=== PATIENT | male | born 1935 | race Caucasian/White ===

== ENCOUNTER 2017-12-04 16:01 | Inpatient (IN) | payer MEDICARE, MEDICAID ==
--- NOTE | 2017-12-04 17:53 | ER Document Report ---
ED Medical Screen (RME) - General Chief Complaint: Abnormal Lab Results Stated Complaint: ABNORMAL LABS Time Seen by Provider: 12/04/17 17:51 Notes: Patient is sent from his primary care doctor's office due to having new onset of atrial fibrillation with PVCs. Patient denies any previous history of atrial fibrillation. He states however that he was just going to his doctor for a routine visit. He states that the routine visit they did the EKG. He states he has not recently had any new chest pain or shortness of breath. No new weakness or dizziness. He states that he feels "fine". TRAVEL OUTSIDE OF THE [place] IN LAST 30 DAYS: No - Related Data Allergies/Adverse Reactions: aspirin Allergy (Verified 12/04/17 16:04) codeine Allergy (Verified 12/04/17 16:04) Penicillins Allergy (Verified 12/04/17 16:04) sulfa Allergy (Uncoded 12/04/17 16:04) Past Medical History - Social History Chew tobacco use (# tins/day): No Frequency of alcohol use: None Drug Abuse: None Renal/ Medical History: Denies: Hx Peritoneal Dialysis Physical Exam - Vital signs Vitals: Temp Pulse Resp BP Pulse Ox 97.7 F 95 18 126/74 H 99 12/04/17 16:25 12/04/17 16:25 12/04/17 16:25 12/04/17 16:25 12/04/17 16:25 Course - Vital Signs Vital signs: Temp Pulse Resp BP Pulse Ox 97.7 F 95 18 126/74 H 99 12/04/17 16:25 12/04/17 16:25 12/04/17 16:25 12/04/17 16:25 12/04/17 16:25
[2017-12-04 18:32] LABS: ABSOLUTE EOSINOPHILS # (AUTO) 0.1 10^3/uL (0.0-0.6); ABSOLUTE LYMPHOCYTES (AUTO) 1.3 10^3/uL (0.5-4.7); ABSOLUTE MONOCYTES (AUTO) 0.4 10^3/uL (0.1-1.4); ABSOLUTE NEUT (AUTO) 6.8 10^3/uL (1.7-8.2); BASOPHILS % (AUTO) 0.6 % (0-2); EOSINOPHILS % (AUTO) 0.9 % (0-6); HEMATOCRIT 40.7 % (37.9-51.0); HEMOGLOBIN 13.7 g/dL (13.5-17.0); LYMPHOCYTES % (AUTO) 14.9 % (13-45); MEAN CORPUSCULAR HEMOGLOBIN 31.6 pg (27.0-33.4); MEAN CORPUSCULAR HGB CONC 33.6 g/dL (32.0-36.0); MEAN CORPUSCULAR VOLUME 94 fl (80-97); PLATELET COUNT 223 10^3/uL (150-450); RED BLOOD COUNT 4.33 10^6/uL (4.35-5.55); SEGMENTED NEUTROPHILS % (AUTO) 78.6 % (42-78); TOTAL CELLS COUNTED % (AUTO) 100 %; WHITE BLOOD COUNT 8.6 10^3/uL (4.0-10.5)
--- NOTE | 2017-12-04 18:44 | ER Document Report ---
ED General - General Chief Complaint: Abnormal Lab Results Stated Complaint: ABNORMAL LABS Time Seen by Provider: 12/04/17 17:51 Notes: Patient is here because his primary care provider found ventricular arrhythmias including possible atrial fibrillation, and PACs and PVCs on his EKG in the office today. Patient was there for a routine checkup visit arranged by 7th grade social studies teacher. He denies having any symptoms. He denies specifically having any chest pains, shortness of breath or difficulty breathing, or vomiting or diarrhea. He says he went to the physician's office because he wanted to get some medications for his Parkinson's disease. child protective services social worker here with him says that he has intermittent shaking of the hands. 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 Patient lives alone. TRAVEL OUTSIDE OF THE [place] IN LAST 30 DAYS: No - Related Data Allergies/Adverse Reactions: aspirin Allergy (Verified 12/04/17 16:04) codeine Allergy (Verified 12/04/17 16:04) Penicillins Allergy (Verified 12/04/17 16:04) sulfa Allergy (Uncoded 12/04/17 16:04) Past Medical History - Social History Smoking Status: Former Smoker Cigarette use (# per day): No Chew tobacco use (# tins/day): No Frequency of alcohol use: None Drug Abuse: None Family History: Reviewed & Not Pertinent Patient has suicidal ideation: No Patient has homicidal ideation: No - Past Medical History Cardiac Medical History: Reports: Hx Hypertension Denies: Hx Atrial Fibrillation, Hx Coronary Artery Disease, Hx Heart Attack Neurological Medical History: Reports: Other - Parkinson's disease and early dementia GI Medical History: Reports: Hx Gastroesophageal Reflux Disease Review of Systems - Review of Systems Notes: REVIEW OF SYSTEMS: CONSTITUTIONAL : Denies fever. EENT: Denies eye, ear, nose or mouth or throat pain or other symptoms. CARDIOVASCULAR: Denies chest pain. RESPIRATORY: Denies cough, chest congestion, or shortness of breath. GASTROINTESTINAL: Denies abdominal pain or nausea, vomiting, or diarrhea. GENITOURINARY: Denies difficulty or painful urinating, urinary frequency, blood in urine. MUSCULOSKELETAL: Denies back or neck pain. Denies joint pain or swelling. SKIN: Denies rash or skin lesions. NEUROLOGICAL: Complains of shakes from his Parkinson's disease. Denies LOC or altered mental status. Denies headache. Denies sensory loss or motor deficits. Has intermittent fine tremor of his hands. ALL OTHER SYSTEMS REVIEWED AND NEGATIVE. Physical Exam - Vital signs Vitals: Temp Pulse Resp BP Pulse Ox 97.7 F 95 18 126/74 H 99 12/04/17 16:25 12/04/17 16:25 12/04/17 16:25 12/04/17 16:25 12/04/17 16:25 Interpretation: Normal - Notes Notes: PHYSICAL EXAMINATION: GENERAL: Well-appearing, in no acute distress. Anxious. Hard of hearing. HEAD: Atraumatic, normocephalic. EYES: Pupils equal round and reactive to light, extraocular movements intact. ENT: oropharynx clear without exudates. Moist mucous membranes. NECK: Normal range of motion, supple. LUNGS: Breath sounds clear and equal bilaterally. HEART: Irregular rate and rhythm without murmurs. ABDOMEN: Soft, nontender. No guarding or rebound. No masses. BACK: No tenderness throughout entire back. EXTREMITIES: Normal range of motion without pain. Negative Homans bilaterally. NEUROLOGICAL: Normal speech. Hard of hearing. Normal sensory, motor, and reflex exams. Awake, alert, and oriented x3. PSYCH: Normal mood, normal affect. SKIN: Warm, dry, no rashes. Course - Re-evaluation Re-evalutation: 12/04/17 19:30 Workup in the emergency department was essentially normal. No unusual labs. Spoke with Dr. Murcia who will admit the patient for further evaluation of his cardiac arrhythmia. - Vital Signs Vital signs: Temp Pulse Resp BP Pulse Ox 98.2 F 95 22 H 122/70 96 12/04/17 19:00 12/04/17 16:25 12/04/17 21:00 12/04/17 21:00 12/04/17 21:00 - Laboratory Result Diagrams: 12/04/17 18:17 12/04/17 18:17 Laboratory results interpreted by me: 12/04/17 12/04/17 12/04/17 18:17 18:17 18:17 RBC 4.33 L Seg Neutrophils % 78.6 H Glucose 129 H Calcium 10.4 H NT-Pro-B Natriuret Pep 605 H TSH 12/04/17 18:17 RBC Seg Neutrophils % Glucose Calcium NT-Pro-B Natriuret Pep TSH 4.75 H - Diagnostic Test Radiology results interpreted by me: 12/04/17 23:51 Chest x-ray shows no acute abnormality. Normal. - EKG Interpretation by Me EKG shows normal: Sinus rhythm Rate: Normal Rhythm: NSR, PVC's, APC's. No: A.Fib [place]/QRS: RBBB Discharge - Discharge Clinical Impression: PVCs (premature ventricular contractions), PAC (premature atrial contraction), Paroxysmal atrial fibrillation Condition: Stable Disposition: ADMITTED OBSERVATION Admitting Provider: Hospitalist Unit Admitted: Telemetry
[2017-12-04 18:52] LABS: ALANINE AMINOTRANSFERASE 21 U/L (21-72); ALKALINE PHOSPHATASE 69 U/L (38-126); ANION GAP 15 (5-19); ASPARTATE AMINO TRANSFERASE 20 U/L (17-59); BILIRUBIN,DIRECT 0.2 mg/dL (0.0-0.4); BILIRUBIN,TOTAL 0.6 mg/dL (0.2-1.3); BLOOD UREA NITROGEN 19 mg/dL (7-20); CALCIUM 10.4 mg/dL (8.4-10.2); CARBON DIOXIDE 24 mmol/L (22-30); CHLORIDE 100 mmol/L (98-107); GLUCOSE 129 mg/dL (75-110); POTASSIUM 4.8 mmol/L (3.6-5.0); SODIUM 138.6 mmol/L (137-145); TOTAL PROTEIN 7.5 g/dL (6.3-8.2)
[2017-12-04] MEDS ORDERED: IPRATROPIUM/ALBUTEROL 0.5-2.5 MG/3 ML AMPUL NEB PRN (19:35)
[2017-12-04] MEDS ORDERED: ACETAMINOPHEN 325 MG TABLET PO PRN (19:35)
[2017-12-04] MEDS ORDERED: MAG HYDROX/AL HYDROX/SIMETH SUSP 30 ML UDCUP PO PRN (19:35)
[2017-12-04] MEDS ORDERED: NORMAL SALINE 1000 ML 1,000 ML IV ONE (19:38)
[2017-12-04 19:52] LABS: CREATINE KINASE MB 0.97 ng/mL (<4.55); TROPONIN I < 0.012 ng/mL
--- NOTE | 2017-12-04 20:12 | RADIOLOGY REPORT (SQ) ---
EXAM DESCRIPTION: CHEST SINGLE VIEW COMPLETED DATE/TIME: 12/04/2017 7:49 pm REASON FOR STUDY: Cardiac arrhythmia, frequent PVCs COMPARISON: None. EXAM PARAMETERS: NUMBER OF VIEWS: One view. TECHNIQUE: Single frontal radiographic view of the chest acquired. RADIATION DOSE: NA LIMITATIONS: None. FINDINGS: LUNGS AND PLEURA: No opacities, masses or pneumothorax. No pleural effusion. MEDIASTINUM AND HILAR STRUCTURES: No masses. Contour normal. HEART AND VASCULAR STRUCTURES: Heart normal in size. Normal vasculature. BONES: No acute findings. HARDWARE: None in the chest. OTHER: No other significant finding. IMPRESSION: NO ACUTE RADIOGRAPHIC FINDING IN THE CHEST. TECHNICAL DOCUMENTATION: JOB ID: [id number] [employer]- All Rights Reserved Reading location - IP/workstation name: [email or web address]
[2017-12-04] MEDS ORDERED: ASPIRIN 325 MG TABLET PO ONE (20:30)
--- NOTE | 2017-12-04 23:53 | EKG REPORT ---
SEVERITY:- ABNORMAL ECG - SINUS RHYTHM RIGHT BUNDLE BRANCH BLOCK : Confirmed by: Guera Johnson 04-Dec-2017 23:52:12
[2017-12-05] MEDS ORDERED: ZOLPIDEM TARTRATE 5 MG TABLET PO PRN (00:12)
[2017-12-05] MEDS: HEPARIN SOD (PORCINE) 5,000 UNIT/ML 1 ML SYRINGE SUBCUT SCH ×4 (00:42→22:28)
[2017-12-05 00:58] LABS: CREATINE KINASE MB 0.87 ng/mL (<4.55)
[2017-12-05 01:03] LABS: TROPONIN I < 0.012 ng/mL
--- NOTE | 2017-12-05 04:43 | PDOC H&P ---
History of Present Illness Admission Date/PCP: 12/04/17 20:55 ALONDRA VILLEDA MD Patient complains of: Palpitations History of Present Illness: SCOTT DIEGO is a 82 year old male with a past medical history of hypertension, GERD, primary tremor, early dementia and anxiety. Patient presents from primary care physician's office Dr. Villeda after EKG reveals possible atrial fibrillation with PVCs. Patient states lifelong history of heart palpitations without complication, denies chest pain nausea vomiting or diaphoresis. In the emergency room he is found to have sinus rhythm with PVCs he is referred to the hospitalist for admission. Past Medical History Cardiac Medical History: Reports: Hypertension Denies: Atrial Fibrillation, Coronary Artery Disease, Myocardial Infarction Neurological Medical History: Reports: Other - Parkinson's disease and early dementia Endocrine Medical History: Denies: Diabetes Mellitus Type 1, Diabetes Mellitus Type 2 GI Medical History: Reports: Gastroesophageal Reflux Disease Psychiatric Medical History: Reports: Dementia, General Anxiety Disorder Social History Information Source: Patient Lives with: Alone Smoking Status: Former Smoker Frequency of Alcohol Use: None Drugs: None - Advance Directive Resuscitation Status: Full Code Family History Family History: COPD Parental Family History Reviewed: Yes Children Family History Reviewed: Yes Sibling(s) Family History Reviewed.: Yes Medication/Allergy Home Medications: Amlodipine Besylate/Benazepril [Amlodipine-Benazepril 10-20 mg] 1 cap PO DAILY 12/04/17 Esomeprazole Magnesium [Nexium] 1 cap PO DAILY 12/04/17 Allergies/Adverse Reactions: aspirin Allergy (Verified 12/04/17 16:04) codeine Allergy (Verified 12/04/17 16:04) Penicillins Allergy (Verified 12/04/17 16:04) sulfa Allergy (Uncoded 12/04/17 16:04) Review of Systems Constitutional: ABSENT: chills, fever(s), headache(s), weight gain, weight loss Eyes: ABSENT: visual disturbances Ears: ABSENT: hearing changes Cardiovascular: ABSENT: chest pain, dyspnea on exertion, edema, orthropnea, palpitations Respiratory: ABSENT: cough, hemoptysis Gastrointestinal: ABSENT: abdominal pain, constipation, diarrhea, hematemesis, hematochezia, nausea, vomiting Genitourinary: ABSENT: dysuria, hematuria Musculoskeletal: ABSENT: joint swelling Integumentary: ABSENT: rash, wounds Neurological: ABSENT: abnormal gait, abnormal speech, confusion, dizziness, focal weakness, syncope Psychiatric: ABSENT: anxiety, depression, homidical ideation, suicidal ideation Endocrine: ABSENT: cold intolerance, heat intolerance, polydipsia, polyuria Hematologic/Lymphatic: ABSENT: easy bleeding, easy bruising Physical Exam Vital Signs: Temp Pulse Resp BP Pulse Ox 97.7 F 68 14 121/67 96 12/04/17 22:52 12/05/17 02:00 12/04/17 22:52 12/04/17 22:52 12/04/17 22:52 Intake & Output 12/03/17 12/04/17 12/05/17 11:59 11:59 11:59 Weight 55.9 kg General appearance: PRESENT: no acute distress, well-developed, well-nourished Head exam: PRESENT: atraumatic, normocephalic Eye exam: PRESENT: conjunctiva pink, EOMI, PERRLA. ABSENT: scleral icterus Ear exam: PRESENT: normal external ear exam Mouth exam: PRESENT: moist, tongue midline Neck exam: ABSENT: carotid bruit, JVD, lymphadenopathy, thyromegaly Respiratory exam: PRESENT: clear to auscultation tiffany. ABSENT: rales, rhonchi, wheezes Cardiovascular exam: PRESENT: RRR. ABSENT: diastolic murmur, rubs, systolic murmur Pulses: PRESENT: normal dorsalis pedis pul Vascular exam: PRESENT: normal capillary refill GI/Abdominal exam: PRESENT: normal bowel sounds, soft. ABSENT: distended, guarding, mass, organolmegaly, rebound, tenderness Rectal exam: PRESENT: deferred Extremities exam: PRESENT: full ROM. ABSENT: calf tenderness, clubbing, pedal edema Neurological exam: PRESENT: alert, awake, oriented to person, oriented to place , oriented to time, oriented to situation, CN II-XII grossly intact. ABSENT: motor sensory deficit Psychiatric exam: PRESENT: appropriate affect, normal mood. ABSENT: homicidal ideation, suicidal ideation Skin exam: PRESENT: dry, intact, warm. ABSENT: cyanosis, rash Results Laboratory Results: 12/05/17 12/05/17 00:16 00:16 Creatine Kinase 60 CK-MB (CK-2) 0.87 Troponin I < 0.012 Impressions: Chest X-Ray 12/04/17 19:31 IMPRESSION: NO ACUTE RADIOGRAPHIC FINDING IN THE CHEST. Assessment & Plan - Diagnosis (1) Hypertension Is this a current diagnosis for this admission?: Yes Plan: Currently well-controlled on ARB and Norvasc. However given palpitations, tremor and anxiety will trial Coreg. (2) Tremor Is this a current diagnosis for this admission?: Yes Plan: Trial Coreg (3) Anxiety Is this a current diagnosis for this admission?: Yes Plan: Evaluate TSH trial Coreg, as needed trazodone (4) PAC (premature atrial contraction) Is this a current diagnosis for this admission?: Yes Plan: Telemetry monitoring. Cardiac enzymes - Time Time Spent: 30 to 50 Minutes
[2017-12-05] MEDS: LANSOPRAZOLE 30 MG TAB.RAP.DR PO SCH (06:41)
[2017-12-05 06:52] LABS: ABSOLUTE EOSINOPHILS # (AUTO) 0.3 10^3/uL (0.0-0.6); ABSOLUTE LYMPHOCYTES (AUTO) 1.6 10^3/uL (0.5-4.7); ABSOLUTE MONOCYTES (AUTO) 0.5 10^3/uL (0.1-1.4); ABSOLUTE NEUT (AUTO) 3.6 10^3/uL (1.7-8.2); BASOPHILS % (AUTO) 0.6 % (0-2); EOSINOPHILS % (AUTO) 4.8 % (0-6); LYMPHOCYTES % (AUTO) 27.3 % (13-45); MEAN CORPUSCULAR HGB CONC 34.3 g/dL (32.0-36.0); MEAN CORPUSCULAR VOLUME 93 fl (80-97); MONOCYTES % (AUTO) 7.9 % (3-13); PLATELET COUNT 155 10^3/uL (150-450); RED BLOOD COUNT 3.42 10^6/uL (4.35-5.55); RED CELL DISTRIBUTION WIDTH 12.9 % (11.5-14.0); SEGMENTED NEUTROPHILS % (AUTO) 59.4 % (42-78); TOTAL CELLS COUNTED % (AUTO) 100 %
[2017-12-05 07:12] LABS: CREATINE KINASE MB 0.68 ng/mL (<4.55)
[2017-12-05 07:19] LABS: TROPONIN I < 0.012 ng/mL
[2017-12-05 07:33] LABS: ANION GAP 10 (5-19); BLOOD UREA NITROGEN 18 mg/dL (7-20); CALCIUM 9.4 mg/dL (8.4-10.2); CARBON DIOXIDE 25 mmol/L (22-30); CHLORIDE 107 mmol/L (98-107); GLUCOSE 89 mg/dL (75-110); POTASSIUM 5.2 mmol/L (3.6-5.0); SODIUM 142.1 mmol/L (137-145)
[2017-12-05] MEDS: AMLODIPINE BESYLATE 10 MG TABLET PO SCH (09:06)
[2017-12-05] MEDS: BENAZEPRIL HCL 20 MG TABLET PO SCH (09:06)
[2017-12-05] MEDS: DOCUSATE SODIUM 100 MG CAPSULE PO SCH ×2 (09:06→17:20)
[2017-12-05] MEDS: CARVEDILOL 6.25 MG TABLET PO SCH ×2 (09:06→22:28)
[2017-12-05] MEDS ORDERED: ESOMEPRAZOLE MAGNESIUM PO SCH (10:00)
[2017-12-05] MEDS ORDERED: (PENDING PHARMACY ID) (Amlodipine Besylate/Benazepril [Amlodipine-Benazepril 10-20 Mg] 1 C PO SCH (10:00)
[2017-12-05 13:11] LABS: CREATINE KINASE MB 0.94 ng/mL (<4.55)
[2017-12-05 13:16] LABS: TROPONIN I < 0.012 ng/mL
[2017-12-05] MEDS ORDERED: ALPRAZOLAM 0.5 MG TABLET PO PRN (15:06)
--- NOTE | 2017-12-05 16:15 | PDOC PROGRESS REPORT ---
Subjective Progress Note for:: 12/05/17 Subjective:: Patient was admitted with palpitations and was found to be in sinus rhythm with multiple PVCs. He was admitted last night. He says he has had palpitations for a long time. Patient thinks is due to his Xanax being discontinued and unable to get it as outpatient. He denies any chest pain nausea vomiting at this time Reason For Visit: TACHYCARDIA, DEMENTIA Physical Exam Vital Signs: Temp Pulse Resp BP Pulse Ox 99.1 F 76 20 131/61 H 97 12/05/17 11:51 12/05/17 14:00 12/05/17 12:50 12/05/17 11:51 12/05/17 11:51 Intake & Output 12/04/17 12/05/17 12/06/17 06:59 06:59 06:59 Intake Total 250 Balance 250 Weight 55.9 kg General appearance: PRESENT: no acute distress, hard of hearing, thin Head exam: PRESENT: atraumatic Mouth exam: PRESENT: dry mucosa Respiratory exam: PRESENT: clear to auscultation tiffany. ABSENT: rales, rhonchi, wheezes Cardiovascular exam: PRESENT: irregular rhythm Pulses: PRESENT: normal dorsalis pedis pul Rectal exam: PRESENT: deferred Extremities exam: PRESENT: full ROM. ABSENT: calf tenderness, clubbing, pedal edema Results Laboratory Results: 12/05/17 06:24 12/05/17 06:24 12/05/17 12/05/17 06:24 06:24 WBC 6.0 RBC 3.42 L Hgb 11.0 L D Hct 32.0 L MCV 93 MCH 32.0 MCHC 34.3 RDW 12.9 Plt Count 155 Seg Neutrophils % 59.4 Lymphocytes % 27.3 Monocytes % 7.9 Eosinophils % 4.8 Basophils % 0.6 Absolute Neutrophils 3.6 Absolute Lymphocytes 1.6 Absolute Monocytes 0.5 Absolute Eosinophils 0.3 Absolute Basophils 0.0 Sodium 142.1 Potassium 5.2 H Chloride 107 Carbon Dioxide 25 Anion Gap 10 BUN 18 Creatinine 1.04 Est GFR ( Amer) > 60 Est GFR (Non-Af Amer) > 60 Glucose 89 Calcium 9.4 12/05/17 12/05/17 12/05/17 00:16 00:16 06:24 Creatine Kinase 60 48 L CK-MB (CK-2) 0.87 Troponin I < 0.012 12/05/17 12/05/17 12/05/17 06:24 12:18 12:18 Creatine Kinase 74 CK-MB (CK-2) 0.68 0.94 Troponin I < 0.012 < 0.012 Impressions: Chest X-Ray 12/04/17 19:31 IMPRESSION: NO ACUTE RADIOGRAPHIC FINDING IN THE CHEST. Assessment & Plan - Time Time Spent with patient: 15-24 minutes Medications reviewed and adjusted accordingly: Yes Anticipated discharge: Home Within: within 24 hours - Plan Summary Plan Summary: 1. Hypertension currently well controlled. 2. 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 He was started on Coreg 3. Sinus rhythm with premature atrial contractions. Patient is being monitored on telemetry with no evidence of atrial fibrillation at this time. 4. Anxiety I have started him back on his benzodiazepines and he will need a few to take home with him 5. Mild hyperkalemia unsure of this is due to JEROMY inhibitors. Will recheck in a.m. 6. If patient remains stable he can be discharged in a.m.
[2017-12-05] MEDS ORDERED: TRAZODONE HCL 50 MG TABLET PO SCH (22:00)
[2017-12-06 04:04] LABS: HEMATOCRIT 31.2 % (37.9-51.0); HEMOGLOBIN 10.6 g/dL (13.5-17.0); MEAN CORPUSCULAR HEMOGLOBIN 31.8 pg (27.0-33.4); MEAN CORPUSCULAR HGB CONC 34.1 g/dL (32.0-36.0); MEAN CORPUSCULAR VOLUME 93 fl (80-97); PLATELET COUNT 144 10^3/uL (150-450); RED BLOOD COUNT 3.35 10^6/uL (4.35-5.55); WHITE BLOOD COUNT 6.1 10^3/uL (4.0-10.5)
[2017-12-06] MEDS: LANSOPRAZOLE 30 MG TAB.RAP.DR PO SCH (05:29)
[2017-12-06] MEDS: HEPARIN SOD (PORCINE) 5,000 UNIT/ML 1 ML SYRINGE SUBCUT SCH ×2 (05:29→15:34)
[2017-12-06] MEDS ORDERED: CARVEDILOL 6.25 MG TABLET PO SCH (10:00)
[2017-12-06] MEDS: AMLODIPINE BESYLATE 10 MG TABLET PO SCH (10:27)
[2017-12-06] MEDS: DOCUSATE SODIUM 100 MG CAPSULE PO SCH (10:27)
[2017-12-06] MEDS: BENAZEPRIL HCL 20 MG TABLET PO SCH (10:27)
--- NOTE | 2017-12-06 12:26 | PDOC DISCHARGE SUMMARY ---
General - Admit/Disc Date/PCP Admission Date/Primary Care Provider: 12/04/17 20:55 ALONDRA VILLEDA MD Discharge Date: 12/06/17 - Discharge Diagnosis (1) Hypertension Is this a current diagnosis for this admission?: Yes (2) Tremor Is this a current diagnosis for this admission?: Yes (3) Anxiety Is this a current diagnosis for this admission?: Yes (4) PAC (premature atrial contraction) Is this a current diagnosis for this admission?: Yes - Additional Information Resuscitation Status: Full Code Prescriptions: Trazodone HCl [Desyrel 50 mg Tablet] 25 mg PO QHS #30 tablet Carvedilol [Coreg 6.25 mg Tablet] 3.125 mg PO Q12 #60 tablet Docusate Sodium [Colace 100 mg Capsule] 100 mg PO BID #60 capsule Lansoprazole [Prevacid 30 mg Odt Tablet] 30 mg PO Q6AM #30 tab.rap Zolpidem Tartrate [Ambien 5 mg Tablet] 5 mg PO HSP PRN #30 tablet PRN Reason: Home Medications: Amlodipine Besylate/Benazepril [Amlodipine-Benazepril 10-20 mg] 1 cap PO DAILY 12/05/17 Esomeprazole Magnesium [Nexium] 40 mg PO DAILY 12/05/17 Carvedilol [Coreg 6.25 mg Tablet] 3.125 mg PO Q12 #60 tablet 12/06/17 Docusate Sodium [Colace 100 mg Capsule] 100 mg PO BID #60 capsule 12/06/17 Lansoprazole [Prevacid 30 mg Odt Tablet] 30 mg PO Q6AM #30 tab. 12/06/17 Trazodone HCl [Desyrel 50 mg Tablet] 25 mg PO QHS #30 tablet 12/06/17 Zolpidem Tartrate [Ambien 5 mg Tablet] 5 mg PO HSP PRN #30 tablet 12/06/17 History of Present Illness History of Present Illness: SCOTT DIEGO is a 82 year old male with a past medical history of hypertension, GERD, primary tremor, early dementia and anxiety. Patient presents from primary care physician's office Dr. Villeda after EKG reveals possible atrial fibrillation with PVCs. Patient states lifelong history of heart palpitations without complication, denies chest pain nausea vomiting or diaphoresis. In the emergency room he is found to have sinus rhythm with PVCs he is referred to the hospitalist for admission. Hospital Course Hospital Course: Patient admitted with PVCs and hypertension. Complaining of tremor, anxiety, insomnia. Patient observed on telemetry floor with Coreg, trazodone and as needed Ambien. No telemetry alarms, negative cardiac workup unremarkable TSH. Patient admits to feeling greatly improved and stable for discharge. Follow-up with primary care in 7-10 days with activity as tolerated a cardiac diet. Physical Exam Vital Signs: Temp Pulse Resp BP Pulse Ox 97.5 F 49 L 18 127/61 H 100 12/06/17 11:26 12/06/17 11:26 12/06/17 11:26 12/06/17 11:26 12/06/17 11:26 Intake & Output 12/05/17 12/06/17 12/07/17 11:59 11:59 11:59 Intake Total 250 1009 Output Total 350 Balance 250 659 Weight 55.9 kg 58.9 kg General appearance: PRESENT: no acute distress, well-developed, well-nourished Head exam: PRESENT: atraumatic, normocephalic Eye exam: PRESENT: conjunctiva pink, EOMI, PERRLA. ABSENT: scleral icterus Ear exam: PRESENT: normal external ear exam Mouth exam: PRESENT: moist, tongue midline Neck exam: ABSENT: carotid bruit, JVD, lymphadenopathy, thyromegaly Respiratory exam: PRESENT: clear to auscultation tiffany. ABSENT: rales, rhonchi, wheezes Cardiovascular exam: PRESENT: RRR. ABSENT: diastolic murmur, rubs, systolic murmur Pulses: PRESENT: normal dorsalis pedis pul Vascular exam: PRESENT: normal capillary refill GI/Abdominal exam: PRESENT: normal bowel sounds, soft. ABSENT: distended, guarding, mass, organolmegaly, rebound, tenderness Rectal exam: PRESENT: deferred Extremities exam: PRESENT: full ROM. ABSENT: calf tenderness, clubbing, pedal edema Neurological exam: PRESENT: alert, awake, oriented to person, oriented to place , oriented to time, oriented to situation, CN II-XII grossly intact. ABSENT: motor sensory deficit Psychiatric exam: PRESENT: appropriate affect, normal mood. ABSENT: homicidal ideation, suicidal ideation Skin exam: PRESENT: dry, intact, warm. ABSENT: cyanosis, rash Results Laboratory Results: 12/06/17 03:55 12/06/17 03:55 12/06/17 12/06/17 03:55 03:55 WBC 6.1 RBC 3.35 L Hgb 10.6 L Hct 31.2 L MCV 93 MCH 31.8 MCHC 34.1 RDW 13.0 Plt Count 144 L Potassium 4.4 12/05/17 12/05/17 12/05/17 00:16 00:16 06:24 Creatine Kinase 60 48 L CK-MB (CK-2) 0.87 Troponin I < 0.012 12/05/17 12/05/17 12/05/17 06:24 12:18 12:18 Creatine Kinase 74 CK-MB (CK-2) 0.68 0.94 Troponin I < 0.012 < 0.012 Impressions: Chest X-Ray 12/04/17 19:31 IMPRESSION: NO ACUTE RADIOGRAPHIC FINDING IN THE CHEST. Qualifiers - * PATEINT BEING DISCHARGED WITH ANY OF THE FOLLOWING DIAGNOSIS?: No Plan Discharge Plan: Discontinue Lotrel, new medications prescribed. Activity as tolerated, cardiac diet, follow-up with primary care 7-10 days.
[2017-12-06 15:56] VITALS: BP 119/63
== END 2017-12-06 17:19 | disposition home or self-care (01) | DRG 310 ==
LOC: ER 16:01 → OBSVTOIN 20:55 → EH 20:55 → 5 22:50
PROVIDERS: ADMIT Internal Medicine; ATTEND Internal Medicine
PROC: 3E0F73Z Introduction of Anti-inflammatory into Respiratory Tract, Via Natural or Artificial Opening (ICD-10-PCS; principal; 2017-12-05)
DX: I49.3 Ventricular premature depolarization (principal); E87.5 Hyperkalemia; G20 Parkinson's disease; F02.80 Dementia in other diseases classified elsewhere, unspecified severity, without behavioral disturbance, psychotic disturbance, mood disturbance, and anxiety; I49.1 Atrial premature depolarization; I10 Essential (primary) hypertension; K21.9 Gastro-esophageal reflux disease without esophagitis; G25.2 Other specified forms of tremor; G47.00 Insomnia, unspecified; F41.1 Generalized anxiety disorder; Z60.2 Problems related to living alone; Z79.899 Other long term (current) drug therapy; Z87.891 Personal history of nicotine dependence; Z88.8 Allergy status to other drugs, medicaments and biological substances; Z88.6 Allergy status to analgesic agent; Z88.0 Allergy status to penicillin; Z88.2 Allergy status to sulfonamides; Z83.6 Family history of other diseases of the respiratory system
CPT/HCPCS: 36415; 71045; 80048; 80053; 82550; 82553; 83735; 83880; 84100; 84132; 84443; 84484; 85025; 85027; 93005; 93010; 99285; G8978-GP; G8979-GP; J1644; J7030